=== PATIENT | female | born 1960 | race Caucasian/White ===

== ENCOUNTER → 2016-06-13 | Outpatient (CLI) | payer BC ==
[2016-06-13 11:27] LABS: CHCM 33.7; HCT 43.2 % (34.0-46.0); HDW 2.56; HGB 14.4 gm/dL (11.4-16.0); MCH 28.9 pg (25.0-35.0); MCHC 33.4 g/dL (31.0-37.0); MCV 86.4 fL (80.0-100.0); Mean Platelet Volume 7.8; RDW 12.8 % (11.5-15.5); WBC 6.4 k/uL (3.8-10.6)
[2016-06-13 12:29] LABS: Erythrocyte Sedimentation Rate 13 mm/hr (0-20)
[2016-06-13 15:30] LABS: Treponemal Ab Non-Reactive (Non-Reactive)
[2016-06-13 17:48] LABS: ANA w/Reflex to Titer NEGATIVE (NEGATIVE)
[2016-06-14 06:05] LABS: Lyme Antibodies Total(IgG/IgM) <0.01 (<0.90)
[2016-06-16 12:32] LABS: HLA B27 NEGATIVE; HLA B27 Comment SEEBELOW
[2016-06-16 15:09] LABS: Mis test requested (Blood) FTA-ABS
[2016-06-17 19:40] LABS: Lysozyme, Serum or Body Fluid 7.6 mcg/mL (5.0-11.0)
== END | disposition home or self-care (01) ==
LOC: LABWHC1 10:17
PROVIDERS: ATTEND Ophthalmology
DX: H20.9 Unspecified iridocyclitis (principal)
CPT/HCPCS: 36415; 82164; 85027; 85549; 85652; 86038; 86431; 86618; 86780; 86812

== ENCOUNTER → 2016-06-23 | Outpatient (CLI) | payer BC ==
--- NOTE | 2016-06-23 16:45 | CT ---
EXAMINATION TYPE: CT abdomen w con DATE OF EXAM: 06/23/2016 4:32 PM COMPARISON: NONE HISTORY: Pt states of right side abominal pain x2 months. CT DLP: 1175.9 mGycm CONTRAST: CT scan of the abdomen and pelvis is performed with Oral Contrast and with IV Contrast, patient injected with 100 mL of Omnipaque 300. FINDINGS: LUNG BASES-: No visible nodule. No infiltrate. Small hiatal hernia is noted. LIVER/GB: No calcified gallstones. No space occupying hepatic lesion. Biliary tree is of normal caliber. There is evidence of fatty hepatic infiltration. PANCREAS: No inflammation. No distinct mass. SPLEEN: No splenic enlargement. No lesion seen. ADRENALS: No nodule. No thickening. KIDNEYS/BLADDER: No hydronephrosis. No nephrolithiasis. No disctinct renal mass. Urinary bladder grossly unremarkable. BOWEL: The appendix is not clearly visualized. No inflammatory process right lower quadrant. Normal bowel caliber. No inflammation. GENITAL ORGANS: Hysterectomy changes noted. LYMPH NODES: No greater than 1cm abdominal or pelvic lymph nodes are appreciated. AORTA: No significant abnormality. OSSEOUS STRUCTURES: No significant abnormality is seen. OTHER: No significant additional abnormality is seen. IMPRESSION: 1. No acute process seen. MTDD
== END | disposition home or self-care (01) ==
LOC: RADCTMAIN 15:22
PROVIDERS: ATTEND Family Medicine
DX: R10.11 Right upper quadrant pain (principal); R93.2 Abnormal findings on diagnostic imaging of liver and biliary tract; K76.0 Fatty (change of) liver, not elsewhere classified
CPT/HCPCS: 74160; 74177

== ENCOUNTER → 2019-12-16 | Outpatient (CLI) | payer BC ==
--- NOTE | 2019-12-16 17:19 | BD ---
EXAMINATION TYPE: Axial Bone Density DATE OF EXAM: 12/16/2019 COMPARISON: NONE CLINICAL HISTORY: 59-year-old female postmenopausal screening Height: 64 Weight: 207.5 FRAX RISK QUESTIONS: Alcohol (3 or more units per day): no Family History (Parent hip fracture): no Glucocorticoids (More than 3mos): no (Ex: prednisone, prednisolone, methylprednisolone, dexamethasone, and hydrocortisone). History of Fracture in Adulthood: no Secondary Osteoporosis: 1. Type 1 Diabetes: no 2. Hyperthyroidism: no 3. Menopause before 45: no 4. Malnutrition: no 5. Chronic liver disease: no Rheumatoid Arthritis: no Current Tobacco Use: no RISK FACTORS HISTORY OF: Family History of Osteoporosis: no Active: yes Diet low in dairy products/other sources of calcium: no Postmenopausal woman: 2011 hysterectomy Lost more than 2 inches in height since high school: no MEDICATIONS: bp meds, cholesterol meds, bladder meds Additional History: EXAM MEASUREMENTS: Bone mineral densitometry was performed using the [employer] System. Bone mineral density as measured about the Lumbar spine is: ----- L1-L4(G/cm2): 1.014 T Score Values are as follows: ----- L2: -1.0 ----- L3: -1.1 ----- L4: -1.9 ----- L1-L4: -1.4 Bone mineral density : baseline Bone mineral density about the R hip (g/cm2): 0.811 Bone mineral density about the L hip (g/cm2): 0.794 T Score values are as follows: -----R Neck: -1.6 -----L Neck: -1.8 -----R Total: -0.8 -----L Total: -0.4 Bone mineral density : baseline IMPRESSION: Osteopenia (T Score between -2.5 and -1). There is slightly increased risk of fracture and the patient may be considered for treatment. Re-Screen 2-5 years. NOTE: T-SCORE=SD OF THE YOUNG ADULT MEAN.
== END | disposition home or self-care (01) ==
LOC: RADBDWWP 12:37
PROVIDERS: ATTEND Family Medicine
DX: Z00.00 Encounter for general adult medical examination without abnormal findings (principal); M85.80 Other specified disorders of bone density and structure, unspecified site; K76.0 Fatty (change of) liver, not elsewhere classified; R73.01 Impaired fasting glucose
CPT/HCPCS: 77080

== ENCOUNTER → 2022-10-01 | Outpatient (CLI) | payer BC | END | disposition home or self-care (01) | LOC: RADECHMAIN 07:17 | PROVIDERS: ATTEND Family Medicine | DX: R00.2 Palpitations (principal) | CPT/HCPCS: 93225; 93226 ==

== ENCOUNTER → 2024-06-21 | Outpatient (CLI) | payer BC ==
--- NOTE | 2024-06-22 14:55 | MM ---
Reason for Exam: Screening (asymptomatic). Last mammogram was performed 5 year(s) and 2 month(s) ago. Patient History: Menarche at age 11. First Full-Term at age 22. Postmenopausal. 02/01/2010, Benign Core Biopsy on the left side. 02/01/2010, Benign Core Biopsy on the right side. Maternal grandmother had breast cancer. Risk Values: Guerita 5 year model risk: 2.3%. NCI Lifetime model risk: 10.0%. Prior Study Comparison: 08/10/2015 Bilateral Screening Mammogram, [facility]. 08/11/2016 Bilateral Screening Mammogram, [facility]. 08/14/2016 Bilateral Diagnostic Mammogram, [facility]. 02/16/2017 Right Diagnostic Mammogram, [facility]. 03/19/2018 Bilateral Diagnostic Mammogram, [facility]. 04/01/2019 Bilateral Diagnostic Mammogram, [facility]. Tissue Density: The breasts are heterogeneously dense, which may obscure small masses. Findings: Analyzed By CAD. Bilateral dense masslike fibroglandular tissue. Further evaluation with spot compression imaging both CC and MLO views recommended. Findings are felt to be more pronounced than immediate prior especially on the right. Bilateral biopsy clips present. Overall Assessment: Incomplete: need additional imaging evaluation, BI-RAD 0 Management: Diagnostic Mammogram of both breasts. [facility] will attempt to contact patient to return for supplemental views and ultrasound if indicated. Patient should continue monthly self-breast exams. A clinical breast exam by your physician is recommended on an annual basis. This exam should not preclude additional follow-up of suspicious palpable abnormalities. Note on Guerita scores and lifetime risk: 1. A Guerita score greater than 3% is considered moderate risk. If this is the case, consider specialist referral to assess eligibility for a risk reducing agent. 2. If overall lifetime risk for the development of breast cancer is 20% or higher, the patient may qualify for future screening with alternating mammogram and breast MRI. [facility], , 06/22/2024 2:52 PM. Electronically signed and approved by: Apolinar Lobo DO
== END | disposition home or self-care (01) ==
LOC: RADMAMWWP 06:57
PROVIDERS: ATTEND Internal Medicine
DX: Z12.31 Encounter for screening mammogram for malignant neoplasm of breast (principal); R92.333 Mammographic heterogeneous density, bilateral breasts; Z78.0 Asymptomatic menopausal state; Z80.3 Family history of malignant neoplasm of breast
CPT/HCPCS: 77063; 77067

== ENCOUNTER → 2024-06-22 | Outpatient (CLI) | payer BC ==
--- NOTE | 2024-06-22 11:38 | BD ---
EXAMINATION TYPE: Axial Bone Density DATE OF EXAM: 06/22/2024 CLINICAL HISTORY: 63 years old Female. ICD-10 CODE: Z78.0 ASYMP ZE STATE , Additional History: Height: 63 in Weight: 216 lbs FRAX RISK QUESTIONS: Secondary Osteoporosis: 5. Chronic liver disease: fatty liver EXAM MEASUREMENTS: Bone mineral densitometry was performed using the [employer] System. Bone mineral density as measured about the Lumbar spine is: ----- L1-L4(G/cm2): 1.017 T Score Values are as follows: ----- L1: -2.3 ----- L2: -1.1 ----- L3: -1.3 ----- L4: -1.0 ----- L1-L4: -1.4 Z Score Values are as follows: ----- L1: -2.0 ----- L2: -0.9 ----- L3: -1.0 ----- L4: -0.7 ----- L1-L4: -1.1 Bone mineral density has: Increased 0.5% since study of: 12/16/2019 Bone mineral density about the R hip (g/cm2): 0.931 Bone mineral density about the L hip (g/cm2): 0.966 T Score values are as follows: -----R Neck: -1.7 -----L Neck: -1.6 -----R Total: -0.6 -----L Total: -0.3 Z Score values are as follows: -----R Neck: -1.1 -----L Neck: -1.0 -----R Total: -0.3 -----L Total: -0.1 Bone mineral density has: Increased 1.5% since study of: 12/16/2019 FRAX%s: The graph provided illustrates a 8.4% chance for a major osteoporotic fx and a 0.9% chance fo r the hips probability for fx in 10 years time. IMPRESSION: Osteopenia (T Score between -2.5 and -1). There is slightly increased risk of fracture and the patient may be considered for treatment. Re-Screen 2-5 years. NOTE: T-SCORE=SD OF THE YOUNG ADULT MEAN. [facility], , 06/22/2024 11:36 AM
== END | disposition home or self-care (01) ==
LOC: RADBDWWP 07:40
PROVIDERS: ATTEND Internal Medicine
DX: M85.89 Other specified disorders of bone density and structure, multiple sites (principal); Z78.0 Asymptomatic menopausal state
CPT/HCPCS: 77080

== ENCOUNTER → 2024-07-15 | Day surgery (SDC) | payer BC ==
--- NOTE | 2024-07-21 12:00 | MM ---
Reason for Exam: Post Procedure Mammogram. Last screening mammogram was performed less than 1 month ago. Patient History: Menarche at age 11. First Full-Term at age 22. Postmenopausal. 05/25/2012, Excisional Biopsy on the Right side. 02/01/2010, Benign Core Biopsy on the left side. 02/01/2010, Benign Core Biopsy on the right side. Maternal grandmother had breast cancer. Risk Values: Guerita 5 year model risk: 2.3%. NCI Lifetime model risk: 10.0%. Prior Study Comparison: 04/01/2019 Bilateral Diagnostic Mammogram, [facility]. 06/21/2024 Bilateral MG 3D screening mammo w/cad, [facility]. 07/04/2024 Bilateral US breast B[facility], [facility]. 07/04/2024 Bilateral MG 3D work up w/cad [facility], [facility]. Tissue Density: Right: The breasts are heterogeneously dense, which may obscure small masses. Pathology Description: Location: 7 o'clock. Needle Type: Mammotome Cores: 8 Gauge: 12 Patient with history of previous ALH in the right breast status post excision. The complex cystic lesion at the 7:00 position, 2 cm from the nipple within the right breast measuring 1.5 cm is identified and targeted for biopsy. Of note, there has been some fluctuation in the patient's breast tissue with the development of a cyst cluster/complex cyst just adjacent measuring 1.2 cm, 4 cm from the nipple. This can be reassessed in 6 months. The procedure of ultrasound guided core biopsy was explained to the patient. Benefits, alternatives, and risks were discussed. An informed consent was then obtained. The patient was placed in supine positioning for imaging and for the procedure. The overlying skin was prepped and draped in usual sterile fashion. Lidocaine buffered with bicarbonate was used as anesthetic into the skin and subcutaneous tissue up to area of concern in the 7:00 right breast. Under ultrasound guidance, a 13-gauge vacuum-assisted mammotome Elite biopsy gun device was used to obtain 7 core samples. Following this, a [employer] butterfly biopsy clip was left at the site of biopsy. Most of the lesion was removed with the multiple samplings. The patient tolerated the procedure well without any immediate complication. The patient was kept in the radiology department for short stay after the procedure and then discharged home in stable condition. Postprocedure mammogram: The patient was transferred to mammography for physician ordered post procedure mammogram for clip placement verification. Post procedure mammogram shows clip within the 6:00 position anterior to middle depth at the site of previous mammographic nodularity. IMPRESSION: Successful, uncomplicated ultrasound guided core biopsy of cyst cluster or complex cyst in the 7:00 position (fibrocystic change is favored). Patient with history of ALH in the right breast with previous excision. Full pathology results to follow. If benign results, six-month follow-up diagnostic right breast mammogram and six-month follow-up right breast ultrasound will be recommended. [facility], , 07/15/2024 12:08 PM. Pathology Results: Result: High risk, Intraductual papilloma high risk. Pathology and radiology were reviewed. Findings are concordant. RIGHT BREAST, 7:00, ULTRASOUND GUIDED CORE BIOPSY: Intraductal papilloma, usual ductal hyperplasia and surrounding proliferative fibrocystic change with scar and fat necrosis with chronic mastitis (see note). Notes Intradepartmental consultation with Dr. Tomas Espinosa is in agreement with the assessment of papilloma. No features of malignancy are seen. Overall Assessment: High risk Assessment: MG diagnostic mammo RT wo CAD - Right: Probably benign, BI-RAD 3. Management: Surgical Consultation of the right breast. Electronically signed and approved by: Paz Sheikh M.D. Radiologist
== END ==
LOC: RADUSWWP 09:35
PROVIDERS: ATTEND Internal Medicine
DX: N61.0 Mastitis without abscess (principal); N64.1 Fat necrosis of breast; N62 Hypertrophy of breast; D24.1 Benign neoplasm of right breast; R92.8 Other abnormal and inconclusive findings on diagnostic imaging of breast; Z78.0 Asymptomatic menopausal state
CPT/HCPCS: 88305; 77065; 19083; A4648

== ENCOUNTER → 2024-10-06 | Outpatient (CLI) | payer BC ==
[2024-10-06 14:36] VITALS: BP 154/75; PULSE 75; RESP 16; TEMP 97.9
--- NOTE | 2024-10-06 15:27 | P.GSCN ---
History of Present Illness Consult date: 10/06/24 Reason for Consult: intraductal papilloma right breast Requesting physician: Olaf Rider History of present illness: Sindi is a 63 year old female seen in consultation for Dr. Rider regarding a biopsy proven right breast intraductal papilloma. She had a bilateral mammogrma on 06-21-24 which led to a bilateral breast ultrasound on 07-04-24. This showed : right breast: cystic cluster; nodule at 7:00 position internal septation left breast: no lesions noted She has had a right breast open biopsy for atypical lobular hyperplasia in about 2012. She has had additional core biopsies on both sides which have been benign in the past. She had not felt anything in her breast this was a routine mammogram. Okay Core biopsy of the right breast: intraductal papilloma personally reviewed and discussed with Dr. Rizo; recommend surgical resection Guerita Risk: 5 years: 2.3% lifetime risk: 10% nicotine: never caffeine: coffee daily and iced tea glass/day chocolate: occasional Family History: maternal grandmother: breast basal cell on her nose and shoulder father: melanoma on back daughter: colon cancer at 2007 Hormonal History: menarche: 14 , age at first : 24 menopause: hysterectomy at 50 took ovaries, no cancer hormones: none BCP: IUD, used for a short time Surgical History: CHIOMA nose replaced basal cell cancer LSIX right breast biopsy Medical History: HTN high cholesterol bladder control Social History: nicotine: none alcohol: rare drugs: none Review of Systems - Constitutional Denies fever, Denies weight loss - EENT Eyes: denies blurred vision Ears: deny: decreased hearing, tinnitus Ears, nose, mouth and throat: Denies dysphagia - Breasts bilateral: as per HPI - Cardiovascular Denies chest pain, Denies shortness of breath - Respiratory Denies cough, Denies 7 - Gastrointestinal Reports as per HPI - Genitourinary Genitourinary: Denies dysuria, Denies hematuria Menstruation: Reports post hysterectomy - Musculoskeletal Musculoskeleta Comment(s): diffuse muscle aches Reports as per HPI - Integumentary Denies rash, Denies unusual bruising - Neurological Denies headaches, Denies syncope - Psychiatric Reports as per HPI - Endocrine Reports as per HPI, Reports fatigue - Hematologic/Lymphatic Reports as per HPI - Allergic/Immunologic Reports seasonal allergies Past Medical History Past Medical History: Cancer, Hyperlipidemia, Hypertension Additional Past Medical History / Comment(s): basal cell skin cancer. ALH 2013 right breast/excisional. Several bilat breast biopsies History of Any Multi-Drug Resistant Organisms: None Reported Past Surgical History: Hysterectomy Additional Past Surgical History / Comment(s): basal cell cancer with mohs/reconstruction Past Anesthesia/Blood Transfusion Reactions: Postoperative Nausea & Vomiting (PONV) Past Psychological History: No Psychological Hx Reported Smoking Status: Never smoker Past Alcohol Use History: Occasional Past Drug Use History: None Reported Medications and Allergies Home Medications Medication Instructions Recorded Confirmed Type Atorvastatin [Lipitor] 10 mg PO DAILY 07/06/24 10/06/24 History Losartan Potassium [Cozaar] 100 mg PO DAILY 07/06/24 10/06/24 History Omeprazole [PriLOSEC] 20 mg PO AC-BID 07/06/24 10/06/24 History amLODIPine [Norvasc] 10 mg PO DAILY 07/06/24 10/06/24 History Allergies Allergy/AdvReac Type Severity Reaction Status Date / Time sulfamethoxazole Allergy Itching Verified 10/06/24 14:34 [From Bactrim] trimethoprim [From Bactrim] Allergy Itching Verified 10/06/24 14:34 Surgical - Exam Vital Signs Temp Pulse Resp BP Pulse Ox 97.9 F 75 16 154/75 96 10/06/24 14:34 10/06/24 14:34 10/06/24 14:34 10/06/24 14:34 10/06/24 14:34 - General no distress - Eyes normal ocular movement - ENT no hearing loss - Neck trachea midline - Respiratory normal respiratory effort - Cardiovascular Rhythm: regular Heart Sounds: normal: S1, S2 - Abdomen Abdomen: soft, non tender, no guarding, no rigid, no rebound - Integumentary normal turgor - Neurologic no disoriented, no combative - Musculoskeletal normal gait - Psychiatric oriented to time, oriented to person, oriented to place, speech is normal, memory intact Breast Exam: BRA: 42B Inspection: Bilateral grade 2 ptosis Palpation: Right breast: Multi positional exam no dominant masses or nodules of concern, well-healed scar from prior surgery in the upper midportion of the breast Right axilla: No adenopathy of concern Left breast: Multi positional exam no dominant masses or nodules of concern Left axilla: No adenopathy of concern Results Mammogram and ultrasound personally reviewed and discussed with Dr. Rizo from radiology/intraductal papilloma right breast 7 o'clock position in a cystic cluster Assessment and Plan Assessment: Impression: Right breast intraductal papilloma History of right breast atypical lobular hyperplasia Fibrocystic breast changes Plan: Right breast needle localization lumpectomy of intraductal papilloma at 7 o'clock position this is the clip that is the lower 7:00 clip 2 cm from the nipple Possible oncoplastic tissue transfer Risk and benefits of the procedure discussed with the patient. Risk include but are not limited to bleeding, infection, reaction to the anesthetic. If adequate tissue acquisition is not obtained then further tissue acquisition may be necessary. She understands and wishes to proceed Consent: I have discussed the risks, benefits and alternative therapies for the above-mentioned procedure and for both sedation/analgesia as well as necessary blood product administration, if indicated, as they pertain to this patient. The patient has indicated understanding and acceptance of the risks and procedures discussed. CC: Dr. Rider
== END ==
LOC: WWCWWP 13:50
PROVIDERS: ATTEND Surgery
DX: D05.11 Intraductal carcinoma in situ of right breast (principal); D24.1 Benign neoplasm of right breast; N60.19 Diffuse cystic mastopathy of unspecified breast; Z88.1 Allergy status to other antibiotic agents; Z88.2 Allergy status to sulfonamides

== ENCOUNTER → 2024-11-04 | Outpatient (CLI) | payer BC ==
--- NOTE | 2024-11-04 12:48 | P.PN ---
Subjective Progress Note Date: 11/04/24 Principal diagnosis: intraductal papilloma 11-04-24 Reason for Consult: intraductal papilloma right breast Requesting physician: Olaf Rider History of present illness: Sindi is a 63 year old female seen in consultation for Dr. Rider regarding a biopsy proven right breast intraductal papilloma. She had a bilateral mammogrma on 06-21-24 which led to a bilateral breast ultrasound on 07-04-24. This showed : right breast: cystic cluster; nodule at 7:00 position internal septation left breast: no lesions noted She has had a right breast open biopsy for atypical lobular hyperplasia in about 2012. She has had additional core biopsies on both sides which have been benign in the past. She had not felt anything in her breast this was a routine mammogram. Core biopsy of the right breast: intraductal papilloma personally reviewed and discussed with Dr. Rizo; recommend surgical resection Guerita Risk: 5 years: 2.3% lifetime risk: 10% nicotine: never caffeine: coffee daily and iced tea glass/day chocolate: occasional Family History: maternal grandmother: breast basal cell on her nose and shoulder father: melanoma on back daughter: colon cancer at 2007 Hormonal History: menarche: 14 , age at first : 24 menopause: hysterectomy at 50 took ovaries, no cancer hormones: none BCP: IUD, used for a short time Surgical History: CHIOMA nose replaced basal cell cancer LSIX right breast biopsy Medical History: HTN high cholesterol bladder control Social History: nicotine: none alcohol: rare drugs: none Review of Systems - Constitutional Denies fever, Denies weight loss - EENT Eyes: denies blurred vision Ears: deny: decreased hearing, tinnitus Ears, nose, mouth and throat: Denies dysphagia - Breasts bilateral: as per HPI - Cardiovascular Denies chest pain, Denies shortness of breath - Respiratory Denies cough - Gastrointestinal Reports as per HPI - Genitourinary Genitourinary: Denies dysuria, Denies hematuria Menstruation: Reports post hysterectomy - Musculoskeletal Musculoskeleta Comment(s): diffuse muscle aches Reports as per HPI - Integumentary Denies rash, Denies unusual bruising - Neurological Denies headaches, Denies syncope - Psychiatric Reports as per HPI - Endocrine Reports as per HPI, Reports fatigue - Hematologic/Lymphatic Reports as per HPI - Allergic/Immunologic Reports seasonal allergies Past Medical History Past Medical History: Cancer, Hyperlipidemia, Hypertension Additional Past Medical History / Comment(s): basal cell skin cancer. ALH 2013 right breast/excisional. Several bilat breast biopsies History of Any Multi-Drug Resistant Organisms: None Reported Past Surgical History: Hysterectomy Additional Past Surgical History / Comment(s): basal cell cancer with mohs/reconstruction Past Anesthesia/Blood Transfusion Reactions: Postoperative Nausea & Vomiting (PONV) Past Psychological History: No Psychological Hx Reported Smoking Status: Never smoker Past Alcohol Use History: Occasional Past Drug Use History: None Reported Medications and Allergies Home Medications Medication Instructions Recorded Confirmed Type Atorvastatin [Lipitor] 10 mg PO DAILY 07/06/24 10/06/24 History Losartan Potassium [Cozaar] 100 mg PO DAILY 07/06/24 10/06/24 History Omeprazole [PriLOSEC] 20 mg PO AC-BID 07/06/24 10/06/24 History amLODIPine [Norvasc] 10 mg PO DAILY 07/06/24 10/06/24 History Allergies Allergy/AdvReac Type Severity Reaction Status Date / Time sulfamethoxazole Allergy Itching Verified 10/06/24 14:34 [From Bactrim] trimethoprim [From Bactrim] Allergy Itching Verified 10/06/24 14:34 Objective - Constitutional General appearance: Present: cooperative - EENT Eyes: Present: EOMI ENT: Present: hearing grossly normal - Neck Neck: Present: normal ROM - Respiratory Respiratory: bilateral: CTA - Cardiovascular Rhythm: regular Heart sounds: normal: S1, S2 - Integumentary Integumentary: Present: normal turgor - Musculoskeletal Musculoskeletal: Present: gait normal - Psychiatric Psychiatric: Present: A&O x's 3, appropriate affect, intact judgment & insight - Additional findings Additional findings: Breast Exam: BRA: 42B Inspection: Bilateral grade 2 ptosis Palpation: Right breast: Multi positional exam no dominant masses or nodules of concern, well-healed scar from prior surgery in the upper midportion of the breast Right axilla: No adenopathy of concern Left breast: Multi positional exam no dominant masses or nodules of concern Left axilla: No adenopathy of concern Assessment and Plan Assessment: Impression: Right breast intraductal papilloma History of right breast atypical lobular hyperplasia Fibrocystic breast changes Plan: Right breast needle localization lumpectomy of intraductal papilloma at 7 o'clock position this is the clip that is the lower 7:00 clip 2 cm from the nipple Possible oncoplastic tissue transfer Risk and benefits of the procedure discussed with the patient. Risk include but are not limited to bleeding, infection, reaction to the anesthetic. If adequate tissue acquisition is not obtained then further tissue acquisition may be necessary. She understands and wishes to proceed Consent: I have discussed the risks, benefits and alternative therapies for the above-mentioned procedure and for both sedation/analgesia as well as necessary blood product administration, if indicated, as they pertain to this patient. The patient has indicated understanding and acceptance of the risks and procedures discussed. CC: Dr. Rider
[2024-11-04 13:00] VITALS: BP 138/82; PULSE 73; RESP 16; TEMP 97.9
== END ==
LOC: WWCWWP 12:00
PROVIDERS: ATTEND Surgery
DX: N60.11 Diffuse cystic mastopathy of right breast (principal); D24.1 Benign neoplasm of right breast; Z88.1 Allergy status to other antibiotic agents; Z88.2 Allergy status to sulfonamides

== ENCOUNTER → 2024-11-09 | Outpatient (CLI) | payer BC ==
--- NOTE | 2024-11-09 13:47 | USB ---
Reason for Exam: Follow-up at short interval from prior study. Patient History: Menarche at age 11. First Full-Term at age 22. Postmenopausal. 07/15/2024, High risk US biopsy breast VAD RT on the right side. 05/25/2012, Excisional Biopsy on the Right side. 02/01/2010, Benign Core Biopsy on the left side. 02/01/2010, Benign Core Biopsy on the right side. Maternal grandmother had breast cancer. Risk Values: Guerita 5 year model risk: 2.3%. NCI Lifetime model risk: 10.0%. Technique: Method: Targeted. Prior Study Comparison: 06/21/2024 Bilateral MG 3D screening mammo w/cad, [facility]. 07/04/2024 Bilateral MG 3D work up w/cad [facility], [facility]. 07/15/2024 Right MG diagnostic mammo RT wo CAD, [facility] Findings: The lateral section of the breast of the right breast, the axilla of the right breast and the retroareolar of the right breast were scanned. Targeted ultrasound right breast at the previous biopsy site, 7:00 position, 2 cm from the nipple. There is residual lesion present measuring 1.1 cm. Clip is visualized within. The second lesion is located approximately 1.1 cm away at 7:00, 4 cm from the nipple. This is a complex cystic structure measuring 1.4 x 1.0 x 0.8 cm. ASSESSMENT : 4 - Suspicious. Management: Needle Localization of the right breast. Needle localization for biopsy proven papilloma can be performed via ultrasound as there is residual lesion present. A second ultrasound-guided needle localization can be concurrently performed for the adjacent complex cyst. Results were given to the patient verbally at the time of exam. [facility], , 11/09/2024 1:44 PM. Electronically signed and approved by: Paz Sheikh M.D. Radiologist
== END | disposition home or self-care (01) ==
LOC: RADUSWWP 13:19
PROVIDERS: ATTEND Surgery
DX: R92.8 Other abnormal and inconclusive findings on diagnostic imaging of breast (principal); Z80.3 Family history of malignant neoplasm of breast; Z78.0 Asymptomatic menopausal state

== ENCOUNTER 2024-11-22 07:14 | Day surgery (SDC) | payer BC ==
[~2024-11-22 07:14] MED LIST: ALPRAZolam 0.5 MG TAB PO PRN; LIDOCAINE 1% (10MG/ML) FOR IV START INTRADERMA PRN; METHYLENE BLUE 50 MG, DEXTROSE 5% IN WATER 50 ML MISCELLANE ONE; SCOPOLAMINE 1 MG/72 HR PATCH TRANSDERM ONE; fentaNYL (PF) 50 MCG/ML 2 ML AMP IV PRN
[2024-11-22] MEDS: ALPRAZolam 0.25 MG TAB PO STA (07:54)
[2024-11-22] MEDS: ACETAMINOPHEN TAB 500 MG TAB PO PRN (07:54)
[2024-11-22] MEDS: IV FLUID CONTINUATION 1,000 ML IV ONE ×2 (08:01→12:13)
[2024-11-22] MEDS: LIDOCAINE 1% INJ 10MG/ML (20 ML MDV) SQ ONE ×2 (09:01→10:53)
[2024-11-22] MEDS: SODIUM BICARB 8.4% 50 ML VIAL (1 MEQ/ML) MISCELLANE ONE (09:01)
[2024-11-22] MEDS: METHYLENE BLUE 50 MG/10 ML VIAL MISCELLANE ONE (09:10)
[2024-11-22] MEDS: LACTATED RINGERS 1,000 ML IV SCH (09:41)
[2024-11-22] MEDS: DEXAMETHASONE SOD PHOSPHATE 4 MG/ML 1 ML VIAL IV ONE (09:42)
[2024-11-22] MEDS: ONDANSETRON 4 MG/2 ML VIAL IVP ONE (09:42)
[2024-11-22] MEDS: HEPARIN SODIUM,PORCINE 5,000 UNIT/ML 1 ML VIAL SQ PRN (09:42)
[2024-11-22] MEDS ORDERED: LIDOCAINE 1% INJ 10MG/ML (20 ML MDV) ONE (09:48)
[2024-11-22] MEDS ORDERED: SUCCINYLCHOLINE CHLORIDE 200 MG/10 ML VIAL IV ONE (09:48)
[2024-11-22] MEDS ORDERED: fentaNYL (PF) 50 MCG/ML 2 ML AMP ONE (09:48)
[2024-11-22] MEDS ORDERED: PHENYLEPHRINE-0.9% NACL SYG 1,000 MCG/10 ML SYRINGE ONE (09:48)
[2024-11-22] MEDS ORDERED: PROPOFOL 10 MG/ML 20 ML VIAL IV ONE (09:48)
--- NOTE | 2024-11-22 11:09 | P.BCAON ---
Date of Procedure: 11/22/24 Preoperative Diagnosis: Intraductal papilloma right breast/additional radiographic abnormality right breast Postoperative Diagnosis: Same Procedure(s) Performed: Needle localization excisional resection intraductal papilloma as well as second area of concern right breast, oncoplastic tissue transfer 43 cm Anesthesia: GETA Surgeon: Dianne Diop Estimated Blood Loss (ml): 5 Pathology: other (Breast tissue/radiograph of specimen reveals area of concern has been resected) Condition: stable Disposition: same day Indications for Procedure: Biopsy-proven intraductal papilloma right breast/radiographic area of concern in addition to this in proximity to the area Operative Findings: Dense breast tissue Description of Procedure: The patient was first seen in the radiology department where needle localization of 2 areas of concern were performed in the right breast. 1 was of an area of a biopsy-proven intraductal papilloma and the second was in proximity to this. Methylene blue was injected at both sites. Following this the patient was taken to the operative suite. Following induction of anesthesia the right breast was prepped and draped in a sterile fashion. An incision was made and carried down to the shaft of both needles and the hook of both needles. Surrounding tissue was excised. The specimen removed was 6 cm x 3 cm. The specimen was painted for orientation. Radiograph of the specimen revealed the wires as well as the clip were in the specimen. A superior pedicle 5 x 3 cm was developed. An inferior pedicle 5 x 2 cm was developed. Titanium clips were placed in the biopsy cavity. The cavity was evaluated for hemostasis. After we are sure that hemostasis was attained Surgicel and powder form was placed. The superior and inferior pedicle were brought together using 3-0 Vicryl suture. The superior pedicle was 5 x 3 cm. The inferior pedicle was 5 x 2 cm. Total oncoplastic tissue transfer 43 cm. The subcutaneous tissues were closed using 3-0 Vicryl suture. The skin was closed using 4-0 Monocryl. 10 cc of 1% lidocaine were injected into the area of the incision. Surgical glue was placed. Sterile dressing was applied. All instrument and sponge counts were correct at the end of the case. The patient tolerated the procedure in stable condition.
[2024-11-22 11:16] VITALS: TEMP 97
[2024-11-22] MEDS: HYDROmorphone 0.5 MG/0.5 ML SYRINGE IVP PRN (11:56)
[2024-11-22 12:32] VITALS: BP 133/83; PULSE 64; RESP 16
--- NOTE | 2024-12-01 10:36 | MM ---
Reason for Exam: Post Procedure Mammogram. Last screening mammogram was performed 5 month(s) ago. Patient History: Menarche at age 11. First Full-Term at age 22. Postmenopausal. 07/15/2024, High risk US biopsy breast VAD RT on the right side. 05/25/2012, Excisional Biopsy on the Right side. 02/01/2010, Benign Core Biopsy on the left side. 02/01/2010, Benign Core Biopsy on the right side. Maternal grandmother had breast cancer. Risk Values: Guerita 5 year model risk: 2.3%. NCI Lifetime model risk: 10.0%. Prior Study Comparison: 06/21/2024 Bilateral MG 3D screening mammo w/cad, [facility]. 07/04/2024 Bilateral MG 3D work up w/cad [facility], [facility]. 07/15/2024 Right MG diagnostic mammo RT wo CAD, [facility]. Tissue Density: Right: The breasts are heterogeneously dense, which may obscure small masses. Pathology Description: Location: 7 o'clock. Approach: Lateral to Medial Needle Type: 5 cm Kopan The 2 complex cystic lesions are identified at the 7:00 position right breast. The previously biopsied lesion located 4 cm from the nipple with clip seen. The second adjacent similar lesion 2 cm from the nipple. Both are targeted from a lateral approach for needle localization by ultrasound. The procedure of needle localization with wire placement and than surgical excision was explained to the patient. Benefits, alternatives, and risks were discussed. An informed consent was then obtained. The shortest pathway for procedure was chosen. Shortest pathway was a lateral approach. The overlying skin was prepped and draped in usual sterile fashion. Lidocaine buffered with bicarbonate was used as anesthetic into the skin and subcutaneous tissue up to the level of area of concern. Two 5 cm Kopans needles were placed via a lateral approach. One mL of methylene blue dye was injected at the site of each lesion initially by Dr. Dyllan Carmona. Subsequently, the needles were advanced through each lesion. The wires were deployed and the needles were removed. At this point, wire was placed and the needle was withdrawn. The wire was fixed to patient's skin. Images were marked for surgeon. Mammogram shows both wires in place. The patient tolerated the procedure well without any immediate complication. The patient was kept in the radiology department for short stay after the procedure and then taken to surgery for surgical excision. Targeted calcifications and wire are identified in specimen mammogram. The patient was kept in hospital for short stay after the procedure and then discharged home in stable condition. IMPRESSION: Successful, uncomplicated ultrasound-guided needle localization with wire placement and surgical excision of biopsy-proven right breast papilloma 7:00 position, 4 cm from the nipple. Additional wire placement and excision of an adjacent, similar area at 7:00, 2 cm from the nipple which was not previously biopsied. Both areas removed in one specimen. Full pathology results to follow. [facility], Workstation: [employer], 11/22/2024 11:12 AM. Pathology Results: Result: Malignant. Pathology and radiology were reviewed. Findings are concordant. 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 Margins negative for DCIS. See [facility] surgical pathology cancer case summary and comment. Overall Assessment: Malignant Assessment: MG diagnostic mammo RT wo CAD - Right: Known biopsy proven malignancy, BI-RAD 6. Management: Diagnostic Mammogram of the right breast in 6 months. Electronically signed and approved by: Paz Sheikh M.D. Radiologist
== END 2024-11-22 13:39 | disposition home or self-care (01) ==
LOC: OR 07:14
PROVIDERS: ATTEND Surgery
DX: D05.11 Intraductal carcinoma in situ of right breast (principal); D24.1 Benign neoplasm of right breast; N60.81 Other benign mammary dysplasias of right breast; I10 Essential (primary) hypertension; E78.5 Hyperlipidemia, unspecified; K21.9 Gastro-esophageal reflux disease without esophagitis; Z80.3 Family history of malignant neoplasm of breast; Z78.0 Asymptomatic menopausal state; Z85.828 Personal history of other malignant neoplasm of skin; Z79.899 Other long term (current) drug therapy
CPT/HCPCS: 88342; 88307; 88341; 77065; 76098; 19285; 19286; 14301; C1819; J0330; J1644; J1100; J0690; J2405; J2003; J3010; J2704; Q9968; J1171; J2371

== ENCOUNTER → 2024-12-01 | Outpatient (CLI) | payer BC ==
--- NOTE | 2024-12-01 14:43 | P.BCPO ---
Progress Note - Text Progress Note Date: 12/01/24 Sindi is a 63 year old female seen in consultation for Dr. Rider regarding a biopsy proven right breast intraductal papilloma. She had a bilateral mammogrma on 06-21-24 which led to a bilateral breast ultrasound on 07-04-24. This showed : right breast: cystic cluster; nodule at 7:00 position internal septation left breast: no lesions noted She has had a right breast open biopsy for atypical lobular hyperplasia in about 2012. She has had additional core biopsies on both sides which have been benign in the past. She had not felt anything in her breast this was a routine mammogram. Core biopsy of the right breast: intraductal papilloma personally reviewed and discussed with Dr. Rizo; recommend surgical resection The patient underwent needle localization of 2 areas of concern in the right breast on 11 22 24. Excision was performed of these areas. Pathology revealed focal low-grade DCIS separate from intraductal papilloma. The margins were negative for DCIS. The size of the DCIS was 2 mm in the closest margin was 4 mm from the inferior margin. Examination: Lungs: Clear Heart: Regular rate and rhythm Incision: Clean and dry Impression/Plan: Incidental finding of DCIS Appointment medical oncology Appointment radiation oncology Follow-up here in 4 months Post Op Education - Post Op Education Post Op Education Provided Date: 12/01/24 - Functional Assessment Performed?: Yes (arm abduction passed) Path Report - Was patient given path report? Path Report Date Given: 12/01/24
[2024-12-01 14:55] VITALS: BP 147/83; PULSE 65; RESP 16; TEMP 97.3
== END ==
LOC: WWCWWP 14:17
PROVIDERS: ATTEND Surgery
DX: D05.10 Intraductal carcinoma in situ of unspecified breast (principal); Z88.2 Allergy status to sulfonamides